=== PATIENT | female | born 2000 | race Asian ===

== ENCOUNTER 2024-12-21 13:09 | Outpatient (AMB) | payer OTHER, SELFPAY ==
--- NOTE | 2024-12-21 13:32 | AM.OFFWIN_ITS ---
Intake Vital Signs 12/21/24 13:34 Height 5 ft Weight 167 lb BMI 32.6 BP 120/82 Blood Pressure Location Rt brachial Position Sitting Respiration 15 Pulse 86 Pulse Source Pulse Oximeter Temp 98.4 F Temp Source Oral Pulse Oximetry (%) 98 Oxygen Delivery Method Room Air Intake Visit Reasons: [employer] Rash Intake Note: Pt is here today c/o rash went to urgent care and dx'd with contact dermatitis 12/06/24, was given crm and prednisone no improvement Patient Tobacco Use Status: Never used Tobacco Allergies No Known Allergies Allergy (Verified 12/21/24 14:24) Medication List - Last Reconciled 12/21/24 by Gregorio Wang MD dextroamphetamine-amphetamine 15 mg 1 tab PO DAILY PRN etonogestrel (Nexplanon) subdermal sertraline 25 mg PO DAILY HPI [employer] Rash HPI Details - The patient is a 24-year-old female pr esenting with a rash spreading over her body. Started 2 weeks ago - Dermatitis initially considered contac t-related, previously diagnosed and minimally responsive to initial treatment measures. Through a different urgent care - Rash first noted on inner thighs, expa nding subsequently to involve multiple body regions including arms and back. - Lack of improvement with prednisone; m inimal relief documented with topical corticosteroid therapy. - Continued use of Zyrtec, prescribed fo r past urticaria, with no significant effect on current widespread rash. - Patient reports absence of systemic sy mptoms or similar conditions in household contacts, suggesting non-infectious etiology. Problem List - Contact Dermatitis - Possible Urticaria Patient Instructions - stronger course of prednisone sent - Use medication for pruritus at night t o minimize scratching. I doxazosin 25 mg 1 or 2 tablets - Wear cotton socks on hands during slee p to avoid inadvertent scratching. - Seek primary care provider for further management and referral to a diesel mechanic farm if necessary. Review of Systems - Constitutional: Denies fever, chills. - Musculoskeletal: Denies joint aches, p ain, or swelling. - Gastrointestinal: Denies nausea, vomit ing, or abdominal pain. - Neurological: Denies headache or dizzi ness. - Integumentary: Reports rash that is it marilu and spreading, denies similar rash in contacts. Physical Exam General: No acute distress HEENT: No acute findings Neck: Supple Respiratory system: Able to talk in full sentences, no audible wheeze Gastrointestinal: No pain PLAN EXAMINER: Alert awake oriented x3 motor sensory intact Skin: Maculopapular rash on arms and legs [facility] Social History Patient Tobacco Use Status: Never used Tobacco Physical Exam Vital Signs: Last Vital Signs Temp 98.4 F 12/21/24 13:34 Pulse 86 12/21/24 13:34 Resp 15 12/21/24 13:34 BP 120/82 12/21/24 13:34 Pulse Ox 98 12/21/24 13:34 Oxygen Delivery Method Room Air 12/21/24 13:34 BMI result Body Mass Index 32.6 Assessment & Plan Assessment & Plan (1) Pruritic rash: Code(s): L28.2 - Other prurigo Plan - The patient is a 24-year-old female presenting with a rash spreading over her body. Started 2 weeks ago - Dermatitis initially considered contact-related, previously diagnosed and minimally responsive to initial treatment measures. Through a different urgent care - Rash first noted on inner thighs, expanding subsequently to involve multiple body regions including arms and back. - Lack of improvement with prednisone; minimal relief documented with topical corticosteroid therapy. - Continued use of Zyrtec, prescribed for past urticaria, with no significant effect on current widespread rash. - Patient reports absence of systemic symptoms or similar conditions in household contacts, suggesting non-infectious etiology. Problem List - Contact Dermatitis - Possible Urticaria Patient Instructions - stronger course of prednisone sent - Use medication for pruritus at night to minimize scratching. I doxazosin 25 mg 1 or 2 tablets - Wear cotton socks on hands during sleep to avoid inadvertent scratching. - Seek primary care provider for further management and referral to a diesel mechanic farm if necessary. Medications: New hydroxyzine HCl Take 1 or 2 tablets at night for itching 25 mg PO BEDTIME 30 tabs 0RF 15 days prednisone PO once; 3 tabs for 2 days, then 2 tabs for 3 days, then 1 tab for 3 days, then half tab for 4 days 17 tabs 0RF 12 days Coding Level of Care Code New Pt Level 3 (29006) Diagnoses Pruritic rash L28.2
[2024-12-21 13:34] VITALS: BP 120/82; PULSE 86; RESP 15; TEMP 36.9; O2SAT 98; BMI 32.6
== END 2024-12-21 14:31 | disposition home or self-care (01) ==
PROVIDERS: Visit Provider Internal Medicine
DX: L28.2 Other prurigo (principal)

== ENCOUNTER → 2024-12-21 13:09 | Outpatient (BNVA) | payer OTHER, SELFPAY | DX: L28.2 Other prurigo (principal) | CPT/HCPCS: 99202 ==

== ENCOUNTER 2024-12-27 14:00 | Outpatient (AMB) | payer OTHER, SELFPAY ==
[2024-12-27 14:03] VITALS: BP 112/72; PULSE 97; O2SAT 98; BMI 32.6
--- NOTE | 2024-12-27 14:03 | A.OFFPC_ITS ---
Vital Signs 12/27/24 14:03 Height 5 ft Weight 167 lb BMI 32.6 BP 112/72 Blood Pressure Location Lt brachial Position Sitting Pulse 97 Pulse Source Pulse Oximeter Pulse Oximetry (%) 98 Oxygen Delivery Method Room Air Intake Visit Reasons: [employer] Established Care- Per Dr. Wang Is last menstrual period known: Yes Last menstrual period: 12/22/24 Allergies No Known Allergies Allergy (Verified 12/27/24 14:04) Medication List - Last Reconciled 12/27/24 by Gregorio Wang MD dextroamphetamine-amphetamine 15 mg 1 tab PO DAILY PRN etonogestrel (Nexplanon) subdermal hydroxyzine HCl 25 mg PO BEDTIME 15 days prednisone PO once; 3 tabs for 2 days, then 2 tabs for 3 days, then 1 tab for 3 days, then half tab for 4 days 12 days sertraline 25 mg PO DAILY Tobacco use date assessed: 12/27/24 Dental Screening Dental Screen Date: 12/27/24 Did you have a dental visit in the last 12 months?: Yes Did you have a dental problem in the last 6 months where you did not have access to dental care?: No Was dental information given to patient?: Patient has dentist HPI [employer] Established Care- Per Dr. Wang HPI Details [place] - The patient is a 24-year-old female pr esenting with a rash. - The rash developed approximately two w eeks ago, was initially severe with itching. - Presenting with reduced pruritus; dark pigmentation remains from the rash. - Treated with prednisone and hydroxyzi ne. - Reports she has not had a routine OBGY N visit. - Laboratory order placed to be done fas ting - No tetanus vaccination was reported. P t will check with her pharm - BMI is elevated need to lose wt Health Maintenance - Need for routine OBGYN care. - Recommendation of laboratory testing w ith fasting requirements. - Future need for tetanus immunization i f records confirm none exists. seeing Psych for medications , Hydroxyzine 30 tabs sent for itching Medications - Sertraline 25 mg for depression/anxiet y. - Adderall for ADHD (dose not specified) . - Hydroxyzine for pruritus. - Prednisone course for rash (duration a nd dose unspecified). Patient Instructions - Continue taking hydroxyzine at night u ntil the rash and associated symptoms subside. - Complete remaining days of prednisone as prescribed. - Undergo laboratory tests while fasting for accurate results. - Visit the pharmacy to confirm tetanus vaccination status and receive if necessary. - Provide contact information for gael castellanos up a patient portal for direct communication. - Avoid scratching the affected areas to prevent worsening of symptoms. - see Obgyn Review of Systems - General: No fever no chills - Neurological: No headaches no dizzin ess - Ear nose throat: No sore throat no hearing difficulty no ear pain - Cardiovascular: No syncope, no chest pain, no palpitations - Gastrointestinal: No nausea vomiting or diarrhea - Endocrine: No polyuria polydipsia no heat intolerance - Genitourinary: No dysuria - Skin: No new complaints Physical Exam General: Cooperative, healthy appearing, comfortable, no acute distress Orientation: Patient oriented x3 Limitations: none Head: Normal to inspection Ears: Within normal limit visually Nose: Normal external nose present Face and sinus: Normal facial exam Eyes: Appearance normal, extraocular movement intact pupils reactive Neck: Normal visual inspection and supple Respiratory: Normal respiratory effort and able to speak in complete sentences. Clear to auscultation, no stridor Cardiovascular: S1 and S2 RRR Breast exam Benign GI: Normal to inspection. Soft to palpation and nontender Skin: Turgor normal, no acute findings, rash present with dark spots, healing, slight itching Neuro: Patient oriented x3, motor sensory intact, balance intact, tandem pass Extremities: Normal to inspection, knees okay, no pain reported [facility] Medical History Mental health disorder Substance abuse Social History Housing: Apartment Patient Tobacco Use Status: Never used Tobacco e-Cigarette/Vaping Use: Never Used service: No Current occupational status: unemployed Cognitive needs: No Hearing needs: No Vision needs: Yes Female Reproductive History Menstrual Date of last menstrual period: 12/22/24 Questionnaire PHQ-9 Over the last 2 weeks, how often have you been bothered by any of the following problems? 1. Little interest or pleasure in doing things: not at all 2. Feeling down, depressed, or hopeless: not at all 3. Trouble falling or staying asleep, or sleeping too much: not at all 4. Feeling tired or having little energy: not at all 5. Poor appetite or overeating: not at all 6. Feeling bad about yourself - or that you are a failure or have let yourself or your family down: not at all 7. Trouble concentrating on things, such as reading the newspaper or watching television: not at all 8. Moving or speaking so slowly that other people could have noticed. Or the opposite - being so fidgety or restless that you have been moving around a lot more than usual: not at all 9. Thoughts that you would be better off or of hurting yourself in some way: not at all Total score: 0 Depression Screening Interpretation: Negative Depression Screening Done: Yes 85298 - PHQ-9 Billing: Yes Source: Developed by Drs. Leon Mesa, Mónica Tuttle, Randall Frances and colleagues, with an educational sandra from [email or web address]. Thrive Questionnaire Date Thrive assessed: 12/27/24 I am a: Patient What is your living situation today?: I have a steady place to live Within the past 12 months, did the food you bought not last and you didn't have the money to get more?: I choose not to answer this question Within the past 12 months, did you worry whether your food would run out before you got money to buy more?: I choose not to answer this question Do you have trouble paying for medicines?: I choose not to answer this question Do you have trouble getting transportation to medical appointments?: I choose not to answer this question Do you have trouble paying your heating and electricity bill?: I choose not to answer this question Do you have trouble taking care of your child, family member or friend?: I choose not to answer this question Do you have trouble with day-to-day activities such as bathing, preparing meals, shopping, managing finances, etc.?: I choose not to answer this question Are you currently unemployed and looking for a job?: I choose not to answer this question Are you interested in more education?: I choose not to answer this question Please select the resources that you would like help with: None Currently or been in a relationship where the following occur: No concerns reported THRIVE Score: 0 AUDIT C Alcohol Use Questionnaire (AUDIT-C) 1. How often do you have a drink containing alcohol?: Monthly or less 2. How many drinks containing alcohol do you have on a typical day when you are drinking?: 1 or 2 3. How often do you have six or more drinks on one occasion?: Never Total Score: 1 Score Reviewed/Action Taken: Yes DEE-7 AMB Questionnaire DEE-7 Date DEE - 7 assessed: 12/27/24 Feeling nervous, anxious, or on edge: 1 = Several days Not being able to stop or control worryin = Not at all Worrying too much about different things: 0 = Not at all Trouble relaxin = Not at all Being so restless that it is hard to sit still: 0 = Not at all Becoming easily annoyed or irritable: 0 = Not at all Feeling afraid as if something awful might happen: 0 = Not at all Total DEE-7 score (0-4 normal; 5-9 mild; 10-14 moderate; 15-21 severe): 1 Source: Developed by Drs. Leon Mesa, Mónica Tuttle, Randall Frances and colleagues, with an educational sandra from [email or web address]. DEE-7 Assessment Billing DEE-7 Assessment Tool: DEE-7 Assessment 89000 Physical exam (Primary Care) Vital Signs: Last Vital Signs Pulse 97 12/27/24 14:03 BP 112/72 12/27/24 14:03 Pulse Ox 98 12/27/24 14:03 Oxygen Delivery Method Room Air 12/27/24 14:03 BMI result Body Mass Index 32.6 Tobacco/Smoking Status: Tobacco use Status Tobacco use date assessed 12/27/24 12/27/24 14:13 Patient Tobacco Use Status Never used Tobacco 12/27/24 14:04 e-Cigarette/Vaping Use Never Used 12/27/24 14:13 PHQ-9: PHQ-9 Score PHQ-9: Total score 0 12/27/24 14:23 Depression Screening Interpretation: Negative Thrive Assessment: Date of Thrive Assessment Date Thrive assessed 12/27/24 12/27/24 14:04 Currently or been in a relationship where the following occur: No concerns reported Coding Level of Care Code Est Pt Level 3 (62498) New Pt Prev Care 18-39yr(25735 Diagnoses Encounter for general adult medical examination with abnormal findings Z00.01 Pruritic rash L28.2 Class 1 obesity due to excess calories without serious comorbidity with body mass index (BMI) of 32.0 to 32.9 in adult E66.811; E66.09; Z68.32 Obesity classification: adult class 1 (BMI 30 - 34.9) Serious obesity comorbidity presence: without serious comorbidity Body mass index: BMI 32.0-32.9 Anxiety, generalized F41.1 Attention deficit disorder, unspecified type F98.8 Attention deficit type: unspecified type Additional Codes DEE-7 Assessment Billing - DEE-7 Assessment Tool: DEE-7 Assessment 46787 ([id number]) PHQ-9 - 17027 - PHQ-9 Billing: Yes ([id number]) Assessment & Plan Assessment & Plan (1) Encounter for general adult medical examination with abnormal findings: Code(s): Z00.01 - Encounter for general adult medical examination with abnormal findings Category: Medical (2) Pruritic rash: Code(s): L28.2 - Other prurigo Category: Medical (3) Obesity due to excess calories: Code(s): E66.09 - Other obesity due to excess calories Category: Medical Qualifiers: Obesity classification: adult class 1 (BMI 30 - 34.9) Serious obesity comorbidity presence: without serious comorbidity Body mass index: BMI 32.0- 32.9 Qualified Code(s): E66.811 - Obesity, class 1; E66.09 - Other obesity due to excess calories; Z68.32 - Body mass index [BMI] 32.0-32.9, adult (4) Anxiety, generalized: Code(s): F41.1 - Generalized anxiety disorder Category: Medical (5) ADD (attention deficit disorder): Code(s): F98.8 - Other specified behavioral and emotional disorders with onset usually occurring in childhood and adolescence Category: Medical Qualifiers: Attention deficit type: unspecified type Qualified Code(s): F98.8 - Other specified behavioral and emotional disorders with onset usually occurring in childhood and adolescence Plan [place] - The patient is a 24-year-old female presenting with a rash. - The rash developed approximately two weeks ago, was initially severe with itching. - Presenting with reduced pruritus; dark pigmentation remains from the rash. - Treated with prednisone and hydroxyzine. - Reports she has not had a routine OBGYN visit. - Laboratory order placed to be done fasting - No tetanus vaccination was reported. Pt will check with her pharm - BMI is elevated need to lose wt Health Maintenance - Need for routine OBGYN care. - Recommendation of laboratory testing with fasting requirements. - Future need for tetanus immunization if records confirm none exists. seeing Psych for medications , Hydroxyzine 30 tabs sent for itching Medications - Sertraline 25 mg for depression/anxiety. - Adderall for ADHD (dose not specified). - Hydroxyzine for pruritus. - Prednisone course for rash (duration and dose unspecified). Patient Instructions - Continue taking hydroxyzine at night until the rash and associated symptoms subside. - Complete remaining days of prednisone as prescribed. - Undergo laboratory tests while fasting for accurate results. - Visit the pharmacy to confirm tetanus vaccination status and receive if necessary. - Provide contact information for setting up a patient portal for direct communication. - Avoid scratching the affected areas to prevent worsening of symptoms. - see Obgyn Orders: Orders Complete Blood Count Auto Diff Today E66.09 - Other obesity due to excess calories, F41.1 - Generalized anxiety disorder, F98.8 - Other specified behavioral and emotional disorders with onset usually occurring in childhood and adolescence, L28.2 - Other prurigo, Z00.01 - Encounter for general adult medical examination with abnormal findings Comprehensive [place]. Panel Fast Today E66.09 - Other obesity due to excess calories, F41.1 - Generalized anxiety disorder, F98.8 - Other specified behavioral and emotional disorders with onset usually occurring in childhood and adolescence, L28.2 - Other prurigo, Z00.01 - Encounter for general adult medical examination with abnormal findings Lipid Panel Today E66.09 - Other obesity due to excess calories, F41.1 - Generalized anxiety disorder, F98.8 - Other specified behavioral and emotional disorders with onset usually occurring in childhood and adolescence, L28.2 - Other prurigo, Z00.01 - Encounter for general adult medical examination with abnormal findings TSH reflex Free T4 Today E66.09 - Other obesity due to excess calories, F41.1 - Generalized anxiety disorder, F98.8 - Other specified behavioral and emotional disorders with onset usually occurring in childhood and adolescence, L28.2 - Other prurigo, Z00.01 - Encounter for general adult medical examination with abnormal findings Vitamin D 25-OH (D2 and D3) Today E66.09 - Other obesity due to excess calories, F41.1 - Generalized anxiety disorder, F98.8 - Other specified behavioral and emotional disorders with onset usually occurring in childhood and adolescence, L28.2 - Other prurigo, Z00.01 - Encounter for general adult medical examination with abnormal findings Referrals [employer] Referral Z01.419 - Encounter for gynecological examination (general) (routine) without abnormal findings Medications: Changed 2 From hydroxyzine HCl Take 1 or 2 tablets at night for itching 25 mg PO BEDTIME 15 days 30 tabs 0RF To hydroxyzine HCl Take 1 or 2 tablets at night for itching 25 mg PO BEDTIME 30 days PRN 30 tabs 0RF itching
== END 2024-12-27 14:25 | disposition home or self-care (01) ==
PROVIDERS: Visit Provider Internal Medicine
DX: Z00.01 Encounter for general adult medical examination with abnormal findings (principal); L28.2 Other prurigo; E66.811 Obesity, class 1; E66.09 Other obesity due to excess calories; Z68.32 Body mass index [BMI] 32.0-32.9, adult; F41.1 Generalized anxiety disorder; F98.8 Other specified behavioral and emotional disorders with onset usually occurring in childhood and adolescence

== ENCOUNTER → 2024-12-27 14:00 | Outpatient (BNVA) | payer OTHER, SELFPAY | PROVIDERS: Visit Provider Internal Medicine | DX: Z00.01 Encounter for general adult medical examination with abnormal findings (principal); L28.2 Other prurigo; E66.09 Other obesity due to excess calories; Z68.32 Body mass index [BMI] 32.0-32.9, adult; Z71.3 Dietary counseling and surveillance; F41.1 Generalized anxiety disorder; F98.8 Other specified behavioral and emotional disorders with onset usually occurring in childhood and adolescence | CPT/HCPCS: 96127; 99212; 99395 ==